=== PATIENT | female | born 1955 | race Caucasian/White ===

== ENCOUNTER 2018-06-29 14:49 | Inpatient (IN) | payer OTHER ==
[~2018-06-29] VITALS: Ht 157.5 cm; Wt 107.9 kg
--- NOTE | ~2018-06-29 | EEG ---
[facility] [place] [address] ELECTROENCEPHALOGRAM Name: BEATRICE MEJIA Room #: 454-P ADM IN M.R.#: [id number] ������������������ Admission: 06/29/18 ������������������ Attend Phys: Drea Javier Discharge: ������������������ Date of : 51 Report #: [id number] ����������������������������������������������������������������� [id number] THIS REPORT FOR: //name// CC: Drea Mohan DATE OF SERVICE: 06/29/2018 This patient is being evaluated for the possibility of seizure. EEG was done by placing the electrode by standard 10-20 system of electrode placement. Both referential and sequential montages were used for recording. Background activity in this patient's EEG is about 9 Hz and 30 microvolt. A lot of muscle artifact is present. That muscle artifact becomes more prominent in between, but still looks like muscle artifact and seizure. The patient became drowsy that is associated with bilateral slowing and vertex sharp waves. Photic stimulation was unremarkable. Photic stimulation was unremarkable. IMPRESSION: This patient's EEG does not demonstrate any clear-cut epileptiform activity. She has a lot of muscle artifact, and it becomes difficult to exclude the seizure, especially because it intermittently becomes more prominent. Therefore, clinical correlation is recommended. ���������������������������������������� ���������������������������������������� By: ��������������������������������������������� 0829 0851 Enrico Garza MD /nt
--- NOTE | ~2018-06-29 | HC ---
[facility] [place] [address] CONSULTATION Name: BEATRICE MEJIA JO Room #: 454-P [facility] IN M.R.#: [id number] Admission: 06/29/18 ������������������ Attend Phys: Drea Cagle Discharge: ������������������ Date of : 51 Report #: [id number] THIS REPORT FOR: //name// CC: Drea Mohan DATE OF SERVICE: 06/29/2018 HISTORY OF PRESENT ILLNESS: This is a 63-year-old female patient who was discussed with ____ for pretty unusual symptom. She said she is having some left-sided weakness. It is several days' duration. She was having some unusual shakiness on the right side. I talked to the Emergency Room physician and recommended MRI of the brain and [place] that was ordered stat, but is not done yet. She denies any history of psychiatric illness in the past. Review of systems is positive for right-sided seizure-like activity. She has a history of vertigo. She takes gabapentin for some reason she does not know. She had some weakness, which is 3 days' duration. A 14-point review of systems was carried out. It was otherwise noncontributory. PAST MEDICAL HISTORY: Positive for shakiness on the right side. FAMILY HISTORY: Negative for any early age stroke. SOCIAL HISTORY: She says she does not drink any alcohol. PHYSICAL EXAMINATION: The patient's examination indicate that this patient is alert and responsive. She can follow simple commands. Cranial nerve examinations appear unremarkable. Her speech, concentration, fund of knowledge and memory is unremarkable. She moves all 4 extremities. She has a good position sense. Her motor system is difficult to assess. Tone looked symmetrical. Reflexes are symmetrical. There is no cerebellar sign. She could not cooperate with the fundus, is moderately obese. Her hearing and vision looks adequate. She has no thyroid mass. Pulses are palpable. She has no edema, cyanosis or jaundice. Blood pressure is 113/54, respirations 16, pulse is 77, temperature is 96.7. LABORATORY DATA: White count is 5.4. Sodium is normal. CT showed a question of a hyperdense lesion in the occipital lobe, but that is why MRI was ordered, which is pending. IMPRESSION: Very unusual symptoms she is having. We will just need some more workup to see if there is any organic pathology and that workup has been ordered. RECOMMENDATIONS: 1. MRI. [address] [address] CONSULTATION Name: JACKIE,JOHN Room #: 454-P [facility] IN M.R.#: [id number] Admission: 06/29/18 ������������������ Attend Phys: Drea Cagle Discharge: ������������������ Date of : 51 Report #: [id number] 2. MRA. 3. EEG. 4. We will check this workup and decide about further management in this patient after this workup is available. ��������������������������������������������� ���������������������������������������� By: ��������������������������������������������� 12 0318 Enrico Garza MD /jason
[2018-06-29 14:50] VITALS: BP 136/73
[2018-06-29 15:53] LABS: HEMATOCRIT 39.1 % (37.0-47.0); HEMOGLOBIN 12.9 gm/dL (12.0-15.0); MCH 28.4 pg (26.0-34.0); MCV 86.1 fL (80.0-100.0); RBC 4.54 mil/uL (4.20-5.00); RDW 13.6 % (10.5-14.5); WBC 5.4 thou/uL (4.0-11.0)
[2018-06-29] MEDS ORDERED: NEURONTIN600 MG PO (15:57)
[2018-06-29] MEDS ORDERED: LIPITOR10 MG PO (15:57)
[2018-06-29] MEDS ORDERED: MYRBETRIQ50 MG PO (15:58)
[2018-06-29] MEDS ORDERED: IRBESARTAN75 MG PO (15:58)
[2018-06-29] MEDS ORDERED: SYNTHROID88 MCG PO (15:58)
[2018-06-29] MEDS ORDERED: OMEPRAZOLE40 MG PO (15:59)
[2018-06-29] MEDS ORDERED: ZANAFLEX4 MG PO (15:59)
[2018-06-29] MEDS ORDERED: ANTIVERT25 MG PO (15:59)
[2018-06-29] MEDS ORDERED: KEPPRA750 MG PO (16:00)
[2018-06-29] MEDS ORDERED: PROAIR HFA8.5 GM INH (16:00)
[2018-06-29] MEDS ORDERED: COMBIVENT RESPIM4 GM INH (16:00)
[2018-06-29] MEDS ORDERED: SYMBICORT160 MCG/4. INH (16:02)
[2018-06-29] MEDS ORDERED: LOPERAMIDE 2 MG2 M1 PO (16:04)
[2018-06-29 16:07] LABS: ANION GAP 10 mmol/L (7-16); BUN 10 mg/dL (7-18); CALCIUM 9.2 mg/dL (8.5-10.1); CHLORIDE 103 mmol/L (98-107); CO2 28 mmol/L (21-32); GLUCOSE 97 mg/dL (74-106); POTASSIUM 3.7 mmol/L (3.5-5.1); SODIUM 141 mmol/L (136-145); TROPONIN-I <0.06 ng/mL (<0.06)
[2018-06-29 16:14] LABS: PROTIME 9.9 Seconds (9.3-11.4)
[2018-06-29 16:15] LABS: APTT 22.8 Seconds (24.5-32.8)
[2018-06-29 17:24] VITALS: BP 138/72
[2018-06-29 17:32] LABS: CHOLESTEROL 143 mg/dL (<200); HDL CHOLESTEROL 55 mg/dL (>40); LDL CHOLESTEROL 62 mg/dL (<100); SERUM ASSESSMENT Clear; TC:HDL 2.6 Ratio (Not establshd); TRIGLYCERIDE 134 mg/dL (<150); VLDL 27 mg/dL (<40)
[2018-06-29 17:38] VITALS: BP 138/72
[2018-06-29 18:00] VITALS: BP 113/54
--- NOTE | 2018-06-29 18:13 | NUR ---
PT ADMITTED FROM ER, PT A&O*4, VSS, TELE MONITOR ON, PT CALM AND COOPERATIVE, NO DISTRESS NOTED.
--- NOTE | 2018-06-30 03:02 | NUR ---
PT USED CALL LIGHT EFFECTIVELY PT ONE ASSIST WITH WALKER TO BATHROOM NO ISSUES OVERNIGHT.
[2018-06-30 04:20] VITALS: BP 96/45
[2018-06-30 07:50] VITALS: BP 145/58
--- NOTE | 2018-06-30 09:01 | EKG ---
[address] [place] [address] ELECTROCARDIOGRAM REPORT Name: BEATRICE MEJIA JO Room #: 454-P ADM IN M.R.#: [id number] ������������������ Admission: 06/29/18 ������������������ Attend Phys: Drea Cagle Discharge: ������������������ Date of : 51 Report #: [id number] ����������������������������������������������������������������� [id number] THIS REPORT FOR: //name// [facility] ED Test Date: 2018-06-29 Test Time: 16:15:37 Pat Name: BEATRICE MEJIA Department: Room: [facility] Gender: F Rehabilitation Director: STEPHANY : 1955 Requested By: Josemanuel Kimball Order Number: [id number] MD: Laron Lucio Measurements Intervals [place] Rate: 79 P: 80 [place]: 188 QRS: 42 QRSD: 92 T: 52 QT: 373 QTc: 428 Interpretive Statements Sinus rhythm Normal tracing No previous ECG available for comparison Electronically Signed On 06-30-2018 9:01:07 INTERNATIONAL RELATIONS PROFESSOR by Laron Lucio [email or web address] ��������������������������������������������� <ELECTRONICALLY SIGNED> ���������������������������������������� By: Laron Lucio MD, [facility] ��������������������������������������������� 06/30/18 0901 1615 1615 Laron Lucio MD, FACC /EPI
--- NOTE | 2018-06-30 13:54 | NUR ---
PT ADMITTED RELATED TO TIA. CM REVIEWED CHART AND SPOKE WITH CARE TEAM. CM MET WITH PT AT BEDSIDE THIS DAY. PT IS A&O X4. CM ROLE INTRODUCED. 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 PT INDICATED SHE HAD [facility] A LONG TIME AGO. PT INDICATED SHE LIVES IN A HOUSE WITH HER SPOUSE, ANOTHER LADY, HER GRANDSON, AND MOTHER IN LAW. PT INDICATED THERE IS 1 STEPS TO ENTER AND NO STEPS INSIDE. PT STATED SHE PLANS TO RETURN HOME ONCE MEDICALLY STABLE. CM ORDERED A FWW FOR HOME USE THROUGH [employer]. PT INDICATED SHE WAS INTERESTED IN OP THERAPIES UPON DC. CM TO FOLLOW INDICATED [facility] DC PLANNING.
--- NOTE | 2018-06-30 13:55 | NUR ---
NUTRITION: Pt admitted for left side weakness and TIA. Seen for 2 point nutritional risk. Pt reports having decreased appetite for 3-4 months, eating around 25% of meals some days and overeating other days. Pt usual body weight around 250, however has had weight loss of about 10 lbs x2 months. This weight loss is not significant at this time. Pt is missing teeth but denies need for softer diet. Food preferences were taken, pt dislikes carrots and turkey. RD explained how to call in alternative menu orders and discussed weight loss strategies with the patient due to BMI of 43 including smaller portion sizes and including fruits and vegetables into the diet. Pt seemed to recieve this well. Pt considered low nutritional risk at this time.
--- NOTE | 2018-06-30 15:03 | NUR ---
A/OX4, DENIES PAIN, MRI AND MRA UNREMARKABLE.SEEN BY DR BETTENCOURT WITH DISCHARGE PEDINGING ORDERS. WAITING RESULTS OF US OF CAROTID AT THIS TIME.NS ON TELE. UP WITH FRONT WHEEL WAKER STANDBY ASSIST X1. FALL PRECAUTINS IN PLACE. CALL LIGHT IN REACH. CONTINUE TO MONITOR
[2018-06-30 15:43] VITALS: BP 138/66
[2018-06-30 16:22] VITALS: BP 138/66
== END 2018-06-30 18:00 | disposition home or self-care (01) | DRG 69 ==
LOC: ER 14:49 → EROBS 17:06 → 4W 17:06
PROVIDERS: Emergency Medicine; ADMIT Hospitalist
DX: G45.9 Transient cerebral ischemic attack, unspecified (principal); R53.1 Weakness; E78.5 Hyperlipidemia, unspecified; I10 Essential (primary) hypertension; E03.9 Hypothyroidism, unspecified; J44.9 Chronic obstructive pulmonary disease, unspecified; Z79.899 Other long term (current) drug therapy; Z88.0 Allergy status to penicillin
CPT/HCPCS: 10045

== ENCOUNTER 2019-01-06 09:37 | Emergency (ER) | payer OTHER ==
[~2019-01-06] VITALS: Ht 157.5 cm; Wt 100.2 kg
[~2019-01-06 09:37] MED LIST: ANTIVERT25 MG PO; COMBIVENT RESPIM4 GM INH; IRBESARTAN75 MG PO; KEPPRA750 MG PO; LIPITOR10 MG PO; LOPERAMIDE 2 MG2 M1 PO; MYRBETRIQ50 MG PO; NEURONTIN600 MG PO; OMEPRAZOLE40 MG PO; PROAIR HFA8.5 GM INH; SYMBICORT160 MCG/4. INH; SYNTHROID88 MCG PO; ZANAFLEX4 MG PO
[2019-01-06] MEDS ORDERED: FLONASE 0.05%50 MCG NASAL (09:53)
[2019-01-06] MEDS ORDERED: BENADRYL25 MG PO (09:54)
[2019-01-06 10:25] LABS: URINE BILIRUBIN NEGATIVE (Negative); URINE BLOOD NEGATIVE (Negative); URINE CLARITY CLOUDY; URINE COLOR YELLOW; URINE GLUCOSE-RANDOM* NEGATIVE (Negative); URINE KETONES NEGATIVE (Negative); URINE LEUKOCYTES-REFLEX NEGATIVE (Negative); URINE NITRITE-REFLEX NEGATIVE (Negative); URINE PROTEIN (DIPSTICK) TRACE (Negative); URINE SPECIFIC GRAVITY 1.025 (1.005-1.035)
[2019-01-06 10:43] LABS: ABSOLUTE NEUTROPHILS 2.3 thou/uL (1.4-8.2); BASOPHILS 1.1 % (0.0-2.0); EOSINOPHILS 1.6 % (0.0-3.0); HEMATOCRIT 34.2 % (37.0-47.0); HEMOGLOBIN 11.3 gm/dL (12.0-15.0); LYMPHOCYTES 37.8 % (24.0-44.0); MCH 29.1 pg (26.0-34.0); MCHC 33.1 g/dL (28.0-37.0); MONOCYTES 9.4 % (1.0-8.0); PLATELET COUNT 187 thou/uL (150-400); POLYS 50.1 % (36.0-66.0); RBC 3.89 mil/uL (4.20-5.00); RDW 13.5 % (10.5-14.5); WBC 4.5 thou/uL (4.0-11.0)
[2019-01-06 10:46] LABS: ANION GAP 5 mmol/L (7-16); BUN 14 mg/dL (7-18); CALCIUM 8.9 mg/dL (8.5-10.1); CHLORIDE 105 mmol/L (98-107); CO2 31 mmol/L (21-32); CREATININE 1.1 mg/dL (0.6-1.0); GLUCOSE 102 mg/dL (74-106); POTASSIUM 4.5 mmol/L (3.5-5.1); SODIUM 141 mmol/L (136-145)
[2019-01-06 10:56] LABS: MAGNESIUM 1.9 mg/dL (1.8-2.4); SGOT 18 U/L (15-37); SGPT 18 U/L (30-65); TOTAL BILIRUBIN 0.3 mg/dL (<0.1-1.0); TOTAL PROTEIN 6.2 g/dL (6.4-8.2); TROPONIN-I <0.06 ng/mL (<0.06)
[2019-01-06] MEDS ORDERED: MOBIC15 MG PO (11:20)
[2019-01-06 12:05] VITALS: BP 138/60
--- NOTE | 2019-01-07 08:31 | EKG ---
[address] [address] ELECTROCARDIOGRAM REPORT Name: JACKIEJOHN [id number] Admission: 01/06/19 Attend Phys: Discharge: 01/06/19 Date of : 51 Report #: [id number] THIS REPORT FOR: //name// [facility] ED Test Date: 2019-01-06 Test Time: 10:06:29 Pat Name: BEATRICE MEJIA Department: Room: Gender: F Senior Manufacturing Engineer: [employer] : 1955 Requested By: Bipin Arriaga Order Number: [id number] MD: Zac Amezcua Measurements Intervals [place] Rate: 67 P: 41 [place]: 193 QRS: 23 QRSD: 105 T: 28 QT: 408 QTc: 431 Interpretive Statements Sinus rhythm Low voltage, precordial leads Compared to ECG 06/29/2018 16:15:37 Low QRS voltage now present Electronically Signed On 01-07-2019 8:31:02 CDT by Zac Amezcua [email or web address] <ELECTRONICALLY SIGNED> By: Zac Amezcua MD 01/07/19 0831 05 05 Zac Amezcua MD /[facility]
== END 2019-01-06 12:11 | disposition home or self-care (01) ==
LOC: ER 09:37
PROVIDERS: Emergency Medicine
DX: S09.8XXA Other specified injuries of head, initial encounter (principal); R42 Dizziness and giddiness; J44.9 Chronic obstructive pulmonary disease, unspecified; I10 Essential (primary) hypertension; E03.9 Hypothyroidism, unspecified; K21.9 Gastro-esophageal reflux disease without esophagitis; Z98.890 Other specified postprocedural states; Z98.49 Cataract extraction status, unspecified eye; Z96.653 Presence of artificial knee joint, bilateral; Z96.641 Presence of right artificial hip joint; Z88.0 Allergy status to penicillin; W18.39XA Other fall on same level, initial encounter; Y92.89 Other specified places as the place of occurrence of the external cause; Y93.89 Activity, other specified; Y99.8 Other external cause status

== ENCOUNTER → 2019-03-07 | Outpatient (CLI) | payer OTHER ==
[~2019-03-07] MED LIST changes: +BENADRYL25 MG PO; +FLONASE 0.05%50 MCG NASAL; +MOBIC15 MG PO
--- NOTE | 2019-03-17 17:36 | SLE ---
[facility] [place] [address] POLYSOMNOGRAPHY STUDY Name: BEATRICE MEJIA JO Room #: [facility].#: [id number] Admission: 03/07/19 Attend Phys: Beltran Garcia MD Discharge: Date of : 51 Report #: [id number] THIS REPORT FOR: //name// CC: Beltran MONDRAGON MD DATE OF SERVICE: 03/07/2019 SLEEP STUDY ATTENDING PHYSICIAN: Dr. Chirag Mondragon. The patient is 63 years old, who weighs 217 pounds with a BMI of 39.7. The patient's Stacy score was 14. The patient underwent diagnostic sleep study performed at [facility]. During the night study, the patient spent 512 minutes in bed and slept for 469 minutes with a sleep efficiency of 91%. Sleep latency was 14.1 minutes with a REM latency of 388 minutes. Sleep architecture showed normal stage 1 sleep, increased stage 2 sleep, reduced slow wave and reduced REM sleep, which was only 2% of the total sleep time. During the night study, the patient had 14 obstructive apneas, 9 mixed apneas and 4 central apneas along with 75 hypopneas. The patient's apnea hypopnea index was 13 per hour with a REM index of 44 per hour and a supine index of 44 per hour. EKG monitoring revealed an average heart rate of 61 beats per minute. No sustained arrhythmias observed. PLMS were seen at an index of 2.6 per hour and 0.6 per hour caused EEG arousals. Nocturnal oximetry study revealed an average oxygen saturation of 90% with the lowest of 77%. 90 minutes were spent in oxygen saturation of less than 89%. The pattern was suggesting a hypoventilation as well as sleep apnea. Due to low AHI, the patient did not meet the split night criteria for CPAP initiation. IMPRESSION: 1. Mild sleep apnea-hypopnea syndrome with worsening during REM sleep. Total AHI of 13 per hour with a REM AHI of 44 per hour and a supine AHI of 15 per hour with a supine REM AHI of 44 per hour. 2. No clinically significant periodic limb movements. 3. Abnormal Nocturnal oximetry study secondary to hypoventilation [facility] [address] [place] [address] POLYSOMNOGRAPHY STUDY Name: BEATRICE MEJIA JO Room #: [facility].#: [id number] Admission: 03/07/19 Attend Phys: Beltran Garcia MD Discharge: Date of : 51 Report #: [id number] and sleep apnea. RECOMMENDATIONS: 1. The patient is clinically symptomatic with an Stacy score of 13. I would recommend treating the patient's sleep apnea with CPAP. Alternate treatment option would include oral appliance as recommended by the dentist. 2. Once the patient is optimally treated, then follow up in 4-6 weeks to assess compliance with treatment and to document clinical improvement. 3. Weight loss is strongly advised. 4. Avoid EXECUTIVE ASSOCIATE depressants. 5. Cautioned regarding driving until symptoms of sleep apnea resolve with the above recommendations. <ELECTRONICALLY SIGNED> By: Beltran Garcia MD 03/17/19 1736 0046 0103 Beltran Garcia MD /nt
== END ==
LOC: SLEEPLAB 03-02 10:07
DX: G47.33 Obstructive sleep apnea (adult) (pediatric) (principal); G47.30 Sleep apnea, unspecified; Z88.0 Allergy status to penicillin; Z88.8 Allergy status to other drugs, medicaments and biological substances

== ENCOUNTER → 2019-03-15 | Outpatient (CLI) | payer OTHER | LOC: NUC 03-10 14:37 | DX: M85.89 Other specified disorders of bone density and structure, multiple sites (principal); Z78.0 Asymptomatic menopausal state ==

== ENCOUNTER 2019-05-31 10:12 | Emergency (ER) | payer OTHER ==
[~2019-05-31] VITALS: Ht 157.5 cm; Wt 98.4 kg
[2019-05-31] MEDS ORDERED: CITALOPRAM HBR40 MG PO (10:47)
[2019-05-31] MEDS ORDERED: ATENOLOL 50MG T50 M1 PO (10:47)
[2019-05-31] MEDS ORDERED: TRIAMCINOLONE A80 G2 TOP (10:48)
[2019-05-31 11:00] LABS: URINE BILIRUBIN NEGATIVE (Negative); URINE BLOOD NEGATIVE (Negative); URINE CLARITY CLEAR; URINE COLOR YELLOW; URINE GLUCOSE-RANDOM* NEGATIVE (Negative); URINE KETONES NEGATIVE (Negative); URINE LEUKOCYTES-REFLEX NEGATIVE (Negative); URINE NITRITE-REFLEX NEGATIVE (Negative); URINE PROTEIN (DIPSTICK) NEGATIVE (Negative); URINE SPECIFIC GRAVITY 1.015 (1.005-1.035)
[2019-05-31 12:46] VITALS: BP 139/41
== END 2019-05-31 12:47 | disposition home or self-care (01) ==
LOC: ER 10:12
PROVIDERS: Emergency Medicine
DX: Z11.3 Encounter for screening for infections with a predominantly sexual mode of transmission (principal); J44.9 Chronic obstructive pulmonary disease, unspecified; I10 Essential (primary) hypertension; K21.9 Gastro-esophageal reflux disease without esophagitis; E03.9 Hypothyroidism, unspecified; Z96.653 Presence of artificial knee joint, bilateral; Z88.0 Allergy status to penicillin

== ENCOUNTER 2021-05-16 10:13 | Emergency (ER) | payer OTHER ==
[~2021-05-16] VITALS: Ht 157.5 cm; Wt 102.1 kg
[~2021-05-16 10:13] MED LIST changes: +ATENOLOL 50MG T50 M1 PO; +CITALOPRAM HBR40 MG PO; +TRIAMCINOLONE A80 G2 TOP
[2021-05-16 10:35] VITALS: BP 152/83
== END 2021-05-16 11:16 | disposition home or self-care (01) ==
LOC: ER 10:13
DX: J06.9 Acute upper respiratory infection, unspecified (principal); J44.9 Chronic obstructive pulmonary disease, unspecified; I10 Essential (primary) hypertension; K21.9 Gastro-esophageal reflux disease without esophagitis; E03.9 Hypothyroidism, unspecified; Z79.899 Other long term (current) drug therapy; Z88.5 Allergy status to narcotic agent; Z88.0 Allergy status to penicillin; Z88.6 Allergy status to analgesic agent